=== PATIENT | male | born 1975 | race Caucasian/White ===

== ENCOUNTER 2018-05-06 10:40 | Emergency (ER) | payer SELFPAY ==
[~2018-05-06] VITALS: Ht 172.7 cm; Wt 85.0 kg
[2018-05-06] MEDS ORDERED: CYCLOBENZAPRINE 10MG TABLET PO ONE (11:45)
[2018-05-06] MEDS ORDERED: KETOROLAC 60MG/2ML VIAL IM ONE (13:00)
[2018-05-06 13:16] VITALS: BP 141/92
== END 2018-05-06 13:18 | disposition home or self-care (01) ==
LOC: ER 10:58
DX: S00.03XA Contusion of scalp, initial encounter (principal); M54.5 Low back pain; Z79.82 Long term (current) use of aspirin; Y04.0XXA Assault by unarmed brawl or fight, initial encounter; Y93.89 Activity, other specified; Y92.89 Other specified places as the place of occurrence of the external cause; Y99.8 Other external cause status
CPT/HCPCS: 72100; 96372; 99284; J1885